=== PATIENT | female | born 1995 | race Caucasian/White ===

== ENCOUNTER 2024-07-19 20:53 | Observation (INO) ==
[2024-07-19 22:01] LABS: Basophils # (auto) 0.04 K/uL (0.00-0.20); Basophils % (auto) 0.6 %; Eosinophils # (auto) 0.02 K/uL (0.00-0.50); Eosinophils % (auto) 0.3 %; Hematocrit (blood only) 42.1 % (37.0-47.0); Hemoglobin 14.7 g/dl (12.0-16.0); Immature Granulocytes # (auto) 0.02 K/uL (0.01-0.20); Immature Granulocytes % (auto) 0.3 %; Lymphocytes # (auto) 0.88 K/uL (1.20-3.40); Lymphocytes % (auto) 12.3 %; Mean Corpuscular Hemoglobin 30.6 pg (25.0-34.0); Mean Corpuscular Hgb Conc 34.9 g/dL (32.0-36.0); Mean Corpuscular Volume 87.7 fL (80.0-100.0); Mean Platelet Volume 9.8 fL (9.4-12.4); Monocytes # (auto) 0.49 K/uL (0.11-0.59); Monocytes % (auto) 6.9 %; Neutrophils # (auto) 5.68 K/uL (1.40-6.50); Neutrophils % (auto) 79.6 %; Platelet Count 290 K/uL (130-400); RDW Coefficient of Variation 11.9 % (11.5-14.5); RDW Standard Deviation 38.3 fL (36.4-46.3); White Blood Count 7.13 K/ul (4.8-10.8)
[2024-07-19 22:14] LABS: Appearance Urine Cloudy (Clear); Specific Gravity Urine 1.016 (1.000-1.030)
[2024-07-19 22:16] LABS: Epithelial Cell Urine >20 /hpf (0-2)
[2024-07-19 22:17] LABS: RBC Urine >20 /hpf (0-2)
[2024-07-19 22:18] LABS: BUN Creatinine Ratio 9.6 (10-20); Bilirubin,Total 0.7 mg/dl (0.2-1.0); Globulin 2.5 gm/dl (2.5-4.0); Potassium 3.6 mmol/L (3.5-5.1); Total Protein 7.5 gm/dl (6.0-8.3)
[2024-07-19] MEDS: fentaNYL citrate PF 100 MCG/2 ML VIAL IV STA (22:18)
[2024-07-19 22:19] LABS: WBC Urine 0-5 /hpf (0-5)
[2024-07-19] MEDS: ONDANSETRON INJ 2 MG/ML 2 ML VIAL IV STA (22:19)
[2024-07-19 22:20] LABS: Bacteria Urine None Seen (None Seen)
--- NOTE | 2024-07-19 22:22 | Emergency Department Note ---
Impression & Plan Acute left flank pain, Calculus of distal left ureter, Left ureteral calculus, Hydroureteronephrosis, Sinus tachycardia ED Provider Note HISTORY OF PRESENT ILLNESS: Patient is a 29-year-old female to male transgender patient presenting with left flank pain. Was here a few days ago for similar symptoms and was diagnosed with a kidney stone. Patient was started on antibiotics and was taking tramadol and Zofran for pain and nausea symptoms, but symptoms significantly worsened this evening. Reports significant pain with urination and burning. Reports urinary frequency. States that despite tramadol dosing, pain is a 9 out of 10. Denies any fevers at home. Denies any chest pain or shortness of breath. Denies any history of abdominal surgeries. ROS: as above PHYSICAL EXAM: Constitutional: Patient appears in no acute distress. HENT: Head: Normocephalic and atraumatic. Eyes: EOMI, PERRL Mouth/Throat: Mucous membranes moist. Neck: Trachea midline. Neck supple. Cardiovascular: Tachycardic with regular rhythm. No murmurs, rubs or gallops. Intact distal pulses. Pulmonary/Chest: No respiratory distress. Breath sounds clear and equal bilaterally. No wheezes or rales. Abdominal: Abdomen soft, no tenderness, rebound or guarding. Musculoskeletal: No edema, tenderness or deformity noted. Skin: Warm and dry. No rash, erythema, pallor or cyanosis Psychiatric: Appropriate mood and affect for situation. Neurological: Alert and keenly responsive. CN II-XII grossly intact, moving all extremities equally and fully. MDM: - Vitals signs showed tachycardia - History obtained via patient. History as above. - Chronic conditions affecting care: Anxiety - Differential diagnoses include, but are not limited to: Diverticulitis; pyelonephritis; UTI; appendicitis; colitis; dehydration; ureteral stone - Order placed for continuous cardiac monitoring. At this time, monitor showed rate of 112 bpm with normal sinus rhythm, per my interpretation. - External medical records reviewed. Primary care visit note dated 06/25/2024 was reviewed. Patient was being treated with Azo and Bactrim for urinary symptoms. - Laboratory workup interpreted by myself showed normal WBC; stable electrolytes; normal lactate; normal lipase; negative hCG - UA negative - Patient given 500 cc NS, 4 mg IV zofran and 50 mcg IV fentanyl for symptomatic management. On reassessment, the patient still complaining of some discomfort. Heart rate still persistently tachycardic from 120-130. An additional 1 L normal saline was ordered, however, the patient declined because "I do not want to keep going to the bathroom." - CT abdomen/pelvis with IV contrast showed a 3.4 mm distal left ureteral stone at the UVJ with mild to moderate left hydroureteronephrosis. An additional proximal left ureteral stone measuring 3.4 mm is noted 3 cm beyond the left UPJ. - Discussed case with midlevel provider on for urology, Dorian Caban. Plans to come evaluate the patient. - Given patient's failed outpatient management for stone pain and persistent tachycardia, will admit to hospitalist service with urology consultation. - Discussion was had with mattress spring encaser about patient's case and need for admission - Hospitalist, Dr. Ramirez, consulted for admission - Patient admitted to [facility] hospitalist service for further evaluation and management. ASSESSMENT AND PLAN: Diagnosis: Acute left flank pain; left distal ureteral stone; sinus tachycardia; left ureteral calculi; hydroureteronephrosis Plan: Admit Past Med/Surg History Problem List (Updated 07/20/24 @ 00:10 by Deepti Welch MD) Sinus tachycardia (Acute) Hydroureteronephrosis (Acute) Left ureteral calculus (Acute) Calculus of distal left ureter (Acute) Acute left flank pain (Acute) UTI (urinary tract infection) (Acute) Kidney stones (Acute) Dissociative identity disorder (Chronic) Left breast mass Kidney stone Ambulatory dysfunction Vitamin D insufficiency NYDIA (generalized anxiety disorder) (Chronic) Arthralgia Gender identity disorder (Chronic) Depression (Chronic) Medical History Post-COVID syndrome PTSD (post-traumatic stress disorder) Anxiety and depression Surgical History History of breast surgery bilateral nipple reduction S/P wisdom tooth extraction Family History Mother Breast cancer Stroke Lupus Father Kidney stones Denies family history of Ovarian cancer Prostate cancer Myocardial infarction Colorectal cancer Social History Smoking Status: Never smoker Tobacco Type: Cigarettes packs per day: 0.5; Second Hand Exposure: No; Do You Dip or Chew Tobacco: No; Hx Alcohol Use: No Hx Substance Use: No Preferred Language: Maltese Communication Ability: Effective Visual Impairment: No Limitations Hearing Ability: Normal French Folder Required: No marital status: Current Living Situation: Spouse current occupational status: unemployed Feels Safe at Home: Yes Childhood Exposure to Second-Hand Smoke: No Diet: regular Dental Care, Regularly: Yes Physical Activity Frequency: 1-2 Times per Week Seatbelt Use: always Sunscreen Use: No Gender Identity: Transgender Male Assistive Devices: Cane and Glasses Allergies Allergies Allergy/AdvReac Type Severity Reaction Status Date / Time No Known Drug Allergies Allergy Verified 06/25/24 11:17 Home Meds Home Medications Medication Instructions Recorded Confirmed diphenhydramine HCl 25 mg capsule 12.5 mg PO DAILY PRN 11/13/20 06/25/24 (Benadryl) Medical Marijuana 1 mg inhalation BID PRN 09/04/22 06/25/24 meloxicam 15 mg tablet 7.5 mg PO BID PRN 09/04/22 03/10/24 citalopram 10 mg tablet (Celexa) 0.5 mg PO DAILY 03/12/23 06/25/24 lamotrigine 100 mg tablet 100 mg PO BID 06/25/24 06/25/24 Previous Rx's Medication Instructions Recorded bupropion HCl 150 mg 24 hr tablet, 150 mg PO QAM #30 tabs 03/20/21 extended release (Wellbutrin XL) Aluminum Crutches #1 ea 12/26/21 sulfamethoxazole 800 1 tab PO Q12H 3 days #6 tabs 06/28/24 mg-trimethoprim 160 mg tablet (Bactrim DS) medroxyprogesterone 150 mg/mL 150 mg IM ONCE 10 weeks #70 mL 07/05/24 intramuscular syringe (Depo-Provera) cefdinir 300 mg capsule 300 mg PO BID 7 days #14 caps 07/13/24 tamsulosin 0.4 mg capsule (Flomax) 0.4 mg PO DAILY #14 caps 07/13/24 tramadol 50 mg tablet 50 mg PO Q8H PRN pain #14 tabs 07/13/24 Results & Data (ED) Vital Signs Vital Signs - 24 hr 07/19/24 20:58 07/19/24 21:19 07/19/24 21:44 Temperature 36.5 C Temperature Source Temporal Artery Scan Pulse Rate 130 H 131 H 131 H Pulse Rate from SpO2 Sensor 124 H Pulse Rhythm Respiratory Rate 20 21 Blood Pressure 139/80 142/101 H Blood Pressure Mean 99 111 Pulse Oximetry 97 100 Oxygen Delivery Method Room Air Sepsis Recent Fever Within 48 Hours No Sepsis New/Unexplained Change in Mental Status No Sepsis Action Taken by Nursing No Action Required 07/19/24 21:55 07/19/24 22:00 07/19/24 22:27 Temperature Temperature Source Pulse Rate 112 H 115 H 125 H Pulse Rate from SpO2 Sensor 120 H 123 H Pulse Rhythm Regular Respiratory Rate 18 19 17 Blood Pressure 134/107 H 138/101 H Blood Pressure Mean 119 111 Pulse Oximetry 100 99 100 Oxygen Delivery Method Room Air Sepsis Recent Fever Within 48 Hours Sepsis New/Unexplained Change in Mental Status Sepsis Action Taken by Nursing Laboratory Data 07/19/24 21:40 07/19/24 21:40 Lab Results 07/19/24 07/19/24 Range/Units 21:40 21:50 WBC 7.13 (4.8-10.8) K/ul RBC 4.80 (4.20-5.40) M/uL Hgb 14.7 (12.0-16.0) g/dl Hct 42.1 (37.0-47.0) % MCV 87.7 (80.0-100.0) fL MCH 30.6 (25.0-34.0) pg MCHC 34.9 (32.0-36.0) g/dL RDW Std Deviation 38.3 (36.4-46.3) fL RDW Coeff of Ap 11.9 (11.5-14.5) % Plt Count 290 (130-400) K/uL MPV 9.8 (9.4-12.4) fL Immature Gran % (Auto) 0.3 % Neut % (Auto) 79.6 % Lymph % (Auto) 12.3 % Blaine % (Auto) 6.9 % Eos % (Auto) 0.3 % Baso % (Auto) 0.6 % Neut # (Auto) 5.68 (1.40-6.50) K/uL Lymph # (Auto) 0.88 L (1.20-3.40) K/uL Blaine # (Auto) 0.49 (0.11-0.59) K/uL Eos # (Auto) 0.02 (0.00-0.50) K/uL Baso # (Auto) 0.04 (0.00-0.20) K/uL Immature Gran # (Auto) 0.02 (0.01-0.20) K/uL Sodium 136 (136-145) mmol/L Potassium 3.6 (3.5-5.1) mmol/L Chloride 100 (98-107) mmol/L Carbon Dioxide 26 (21-32) mmol/L Anion Gap 10 (3-11) BUN 10 (6-23) mg/dl Creatinine 1.04 (0.6-1.2) mg/dl Est Cr Clr Drug Dosing 59.0 ml/min eGFR 75.55 BUN/Creatinine Ratio 9.6 L (10-20) Glucose 93 (70-99(Fasting)) mg/dl Lactate 1.3 (0.4-2.0) mmol/L Calcium 10.0 (8.6-10.3) mg/dl Total Bilirubin 0.7 (0.2-1.0) mg/dl AST 14 (13-39) U/L ALT 11 (7-52) U/L Alkaline Phosphatase 64 (34-104) U/L Total Protein 7.5 (6.0-8.3) gm/dl Albumin 5.0 (3.4-5.0) gm/dl Globulin 2.5 (2.5-4.0) gm/dl Albumin/Globulin Ratio 2.0 (0.9-2) Lipase 25 (11-82) U/L Urine Color See Comment Urine Appearance Cloudy A (Clear) Urine pH Not Reportable Ur Specific [place] 1.016 (1.000-1.030) Urine Protein Not Reportable Urine Glucose (UA) Not Reportable Urine Ketones Not Reportable Urine Blood Not Reportable Urine Nitrite Not Reportable Urine Bilirubin Not Reportable Urine Urobilinogen Not Reportable Ur Leukocyte Esterase Not Reportable Urine RBC >20 H (0-2) /hpf Urine WBC 0-5 (0-5) /hpf Ur Epithelial Cells >20 H (0-2) /hpf Urine Bacteria None Seen (None Seen) POC Ur Test NEG (NEG) Administered Medications Discontinued Medications Fentanyl Citrate (Fentanyl Citrate Pf 100 Mcg/2 Ml Vial) 50 mcg IV NOW STA Stop: 07/19/24 22:07 Last Admin: 07/19/24 22:18 Dose: 50 mcg Documented By: DENISE Sodium Chloride (Nss) 1,000 mls @ 999 mls/hr IV .Q1H1M ONE Stop: 07/19/24 23:06 Last Infusion: 07/19/24 23:51 Dose: Infused Documented By: Admin: 07/19/24 22:24 Dose: 999 mls/hr Documented By: DENISE Ioversol (Optiray 320 100ml) 93 ml IV ONCE ONE Stop: 07/19/24 23:01 Last Admin: 07/19/24 23:01 Dose: 93 ml Documented By: RENA Ondansetron HCl (Ondansetron Inj 2 Mg/Ml 2 Ml Vial) 4 mg IV NOW STA Stop: 07/19/24 22:07 Last Admin: 07/19/24 22:19 Dose: 4 mg Documented By: DENISE Imaging Data Radiologist's Impression: Abdomen/Pelvis CT 07/19/24 22:06 Exam(s): CT ABDOMEN + PELVIS With Contrast IV Amt: 93 ml opti 320 EXAM: CT Abdomen and Pelvis With Intravenous Contrast CLINICAL HISTORY: left flank pain. TECHNIQUE: Axial computed tomography images of the abdomen and pelvis with intravenous contrast. CTDI is 7.41 mGy and DLP is 336.98 mGy-cm. Automated exposure control was utilized for the study. A dose lowering technique was utilized adhering to the principles of ALARA. CONTRAST: Patient received 93 ml opti 320 of IV contrast COMPARISON: CT abdomen and pelvis without contrast dated 07/13/2024 FINDINGS: Lung bases: Unremarkable. No mass. No consolidation. ABDOMEN: Liver: Unremarkable. No mass. Gallbladder and bile ducts: Unremarkable. No calcified stones. No ductal dilation. Pancreas: Unremarkable. No mass. No ductal dilation. Spleen: Unremarkable. No splenomegaly. Adrenals: Unremarkable. No mass. Kidneys and ureters: 3.4 mm distal left ureteral stone noted at the UVJ with mild to moderate left hydroureteronephrosis. There is an additional proximal left ureteral stone noted measuring 3.4 mm approximately 3 cm beyond the left UPJ (series 300; image 47). No abnormal enhancement to suggest pyelonephritis bilaterally. Evaluation for subtle nonobstructive nephrolithiasis is limited by contrast enhancement pattern. No right-sided hydronephrosis. Stomach and bowel: No evidence for bowel obstruction. No definite asymmetric bowel mucosal abnormality. Mild to moderate stool burden. PELVIS: Appendix: A normal caliber appendix is noted along the medial aspect of the cecum. Bladder: Unremarkable. No mass. Reproductive: Unremarkable as visualized. ABDOMEN and PELVIS: Intraperitoneal space: Unremarkable. No free air. No significant fluid collection. Bones/joints: No acute fracture. No dislocation. Soft tissues: Unremarkable. Vasculature: Unremarkable. No abdominal aortic aneurysm. Lymph nodes: Unremarkable. No enlarged lymph nodes. IMPRESSION: 3.4 mm distal left ureteral stone noted at the UVJ with mild to moderate left hydroureteronephrosis. There is an additional proximal left ureteral stone noted measuring 3.4 mm approximately 3 cm beyond the left UPJ (series 300; image 47). Electronically signed by: Wade Foster MD 07/19/24 23:58 PM Discharge Plan Visit Data Chief Complaint: Abdominal Pain Stated Complaint: UTI,KIDNEY STONES,VOIDING ISSUES ED Provider: Deepti Welch Discharge Problem: Acute left flank pain, Calculus of distal left ureter, Left ureteral calculus, Hydroureteronephrosis, Sinus tachycardia Forms Stand Alone Forms: [employer] Prescriptions Prescriptions: No Action bupropion HCl [Wellbutrin XL] 150 mg tablet extended release 24 hr 150 mg PO QAM Qty: 30 2RF (DME) Aluminum Crutches Misc See Rx Instructions .Route Qty: 1 0RF Rx Instructions: 1 pair forearm brace crutches. Length of need:99 sulfamethoxazole-trimethoprim [Bactrim DS] 800-160 mg tablet 1 tab PO Q12H 3 Days Qty: 6 0RF medroxyprogesterone [Depo-Provera] 150 mg/mL syringe 150 mg IM ONCE 70 Days Qty: 70 4RF Rx Instructions: One injection Q 10w. diphenhydramine HCl [Benadryl] 25 mg capsule 12.5 mg PO DAILY PRN lamotrigine 100 mg tablet 100 mg PO BID meloxicam 15 mg tablet 7.5 mg PO BID PRN Medical Marijuana 1 mg inhalation BID PRN citalopram [Celexa] 10 mg tablet 0.5 mg PO DAILY cefdinir 300 mg capsule 300 mg PO BID 7 Days Qty: 14 0RF tamsulosin [Flomax] 0.4 mg capsule 0.4 mg PO DAILY Qty: 14 0RF tramadol 50 mg tablet 50 mg PO Q8H PRN (Reason: pain) Qty: 14 0RF Referrals Referrals: Brennon Warren III, CRNP [Primary Care Provider] -
[2024-07-19] MEDS: SODIUM CHLORIDE 0.9% 1,000 ML IV ONE (22:24)
[2024-07-19] MEDS: OPTIRAY 320 100ml IV ONE (23:01)
--- NOTE | 2024-07-19 23:59 | CT Scan Report ---
Exam(s): CT ABDOMEN + PELVIS With Contrast IV Amt: 93 ml opti 320 EXAM: CT Abdomen and Pelvis With Intravenous Contrast CLINICAL HISTORY: left flank pain. TECHNIQUE: Axial computed tomography images of the abdomen and pelvis with intravenous contrast. CTDI is 7.41 mGy and DLP is 336.98 mGy-cm. Automated exposure control was utilized for the study. A dose lowering technique was utilized adhering to the principles of ALARA. CONTRAST: Patient received 93 ml opti 320 of IV contrast COMPARISON: CT abdomen and pelvis without contrast dated 07/13/2024 FINDINGS: Lung bases: Unremarkable. No mass. No consolidation. ABDOMEN: Liver: Unremarkable. No mass. Gallbladder and bile ducts: Unremarkable. No calcified stones. No ductal dilation. Pancreas: Unremarkable. No mass. No ductal dilation. Spleen: Unremarkable. No splenomegaly. Adrenals: Unremarkable. No mass. Kidneys and ureters: 3.4 mm distal left ureteral stone noted at the UVJ with mild to moderate left hydroureteronephrosis. There is an additional proximal left ureteral stone noted measuring 3.4 mm approximately 3 cm beyond the left UPJ (series 300; image 47). No abnormal enhancement to suggest pyelonephritis bilaterally. Evaluation for subtle nonobstructive nephrolithiasis is limited by contrast enhancement pattern. No right-sided hydronephrosis. Stomach and bowel: No evidence for bowel obstruction. No definite asymmetric bowel mucosal abnormality. Mild to moderate stool burden. PELVIS: Appendix: A normal caliber appendix is noted along the medial aspect of the cecum. Bladder: Unremarkable. No mass. Reproductive: Unremarkable as visualized. ABDOMEN and PELVIS: Intraperitoneal space: Unremarkable. No free air. No significant fluid collection. Bones/joints: No acute fracture. No dislocation. Soft tissues: Unremarkable. Vasculature: Unremarkable. No abdominal aortic aneurysm. Lymph nodes: Unremarkable. No enlarged lymph nodes. IMPRESSION: 3.4 mm distal left ureteral stone noted at the UVJ with mild to moderate left hydroureteronephrosis. There is an additional proximal left ureteral stone noted measuring 3.4 mm approximately 3 cm beyond the left UPJ (series 300; image 47). Electronically signed by: Wade Foster MD 07/19/24 23:58 PM
[2024-07-20 00:12] LABS: Thyroid Stimulating Hormone 1.574 uIu/ml (0.300-4.500)
[2024-07-20] MEDS: MoRPHine SULFATE 4 MG/ML 1 ML CARP\\VIAL IV STA (00:18)
[2024-07-20] MEDS: ACETAMINOPHEN 1,000 MG/100 ML VIAL IV STA (00:26)
[2024-07-20] MEDS: SODIUM CHLORIDE 0.9% 1,000 ML IV ONE (00:27)
--- NOTE | 2024-07-20 00:29 | Urology Consultation ---
Date of Consultation July 20, 2024 Assessment & Plan (1) Left ureteral calculus: I discussed with the treating emergency room physician that the patient is being admitted on the hospitalist service. From a urologic perspective we recommend the following: During the patient's previous visit the urine culture results were noted and the reflection was recommended. Although the urinalysis at this time is not indicative of infection I will order a urine culture Analgesics to be provided Antiemetics to be provided Would recommend continuing Flomax for expulsive therapy Would recommend continuing antibiotics and will leave this to the discretion of the primary service which antibiotic to utilize Would recommend the patient be made n.p.o. at this time At the present time patient is nontoxic-appearing. Although they are tachycardic they do not exhibit hypotension, fever, or leukocytosis. In addition, lactic acid level is normal. I therefore feel conservative management is warranted at this time. The patient will be reevaluated the morning 07/20/2024 and determination will be made if patient requires cystoscopic intervention. History of Present Illness Reason for Consultation: Nephrolithiasis History of Present Illness This is a 29-year-old female who presented the emergency department secondary to issues with kidney stones. Patient was previously seen on 07/13/2024 in the emergency department. During this visit patient had a CT scan of the abdomen pelvis which identified a 5 mm kidney stone in the distal left ureter. There is no hydronephrosis noted on this study. Patient was also noted to have a 5 mm stone in the left renal pelvis. Labs included CBC were hemoglobin and hematocrit, white blood cell count platelet count were all normal. Chemistry profile showed sodium and potassium as well as the BUN and creatinine were normal. Urinalysis showed no nitrites or bacteria but the patient was noted to have pyuria with 11-20 white blood cells per high-power field as well as 1+ leukocyte Estrace. Patient was felt to be stable for discharge home and was placed on antibiotics form of cefdinir as well as Flomax and analgesics. It is nowhere the mention that the urine culture did come back from this visit which showed 3 organisms all in high counts with recollection recommended. The patient Power presented to the emergency department today secondary to ongoing issues with pain. The patient notes that they are been having left flank pain with some associated nausea without emesis. Patient has not had any fevers, shakes, but does have occasional chills. Patient also notes that they had the urge to urinate and are only able to urinate a small amount. Patient does report they have been compliant with the antibiotics. Since arrival to the emergency department today they have had labs and imaging which I independently reviewed. A CT scan abdomen pelvis showed the patient had 3.4 mm distal left ureteral stone at the ureterovesical junction. There is mild to moderate hydronephrosis noted on the study. Patient was also noted to have a left ureteral stone approximately 3 cm beyond the ureteropelvic junction measu ring 3.4 mm. Labs included a CBC where hemoglobin, hematocrit, white blood cell count, platelet count were normal. Chemistry profile showed sodium and potassium as well as the BUN and creatinine were normal. Lactic acid was not elevated. A test was noted to be negative. Urinalysis was not indicative of infection. At the time my interview the patient was resting comfortably in bed and there were no distress. Allergies Allergy/AdvReac Type Severity Reaction Status Date / Time No Known Drug Allergies Allergy Verified 06/25/24 11:17 Home Medications Medication Instructions Recorded Confirmed Type diphenhydramine HCl 25 mg capsule 12.5 mg PO DAILY PRN 11/13/20 06/25/24 History (Benadryl) bupropion HCl 150 mg 24 hr tablet, 150 mg PO QAM #30 tabs 03/20/21 06/25/24 Rx extended release (Wellbutrin XL) Aluminum Crutches #1 ea 12/26/21 03/10/24 Rx Medical Marijuana 1 mg inhalation BID PRN 09/04/22 06/25/24 History meloxicam 15 mg tablet 7.5 mg PO BID PRN 09/04/22 03/10/24 History citalopram 10 mg tablet (Celexa) 0.5 mg PO DAILY 03/12/23 06/25/24 History lamotrigine 100 mg tablet 100 mg PO BID 06/25/24 06/25/24 History sulfamethoxazole 800 1 tab PO Q12H 3 days #6 tabs 06/28/24 Rx mg-trimethoprim 160 mg tablet (Bactrim DS) medroxyprogesterone 150 mg/mL 150 mg IM ONCE 10 weeks #70 mL 07/05/24 Rx intramuscular syringe (Depo-Provera) cefdinir 300 mg capsule 300 mg PO BID 7 days #14 caps 07/13/24 Rx tamsulosin 0.4 mg capsule (Flomax) 0.4 mg PO DAILY #14 caps 07/13/24 Rx tramadol 50 mg tablet 50 mg PO Q8H PRN pain #14 tabs 07/13/24 Rx Patient History Medical History Post-COVID syndrome PTSD (post-traumatic stress disorder) Anxiety and depression Surgical History History of breast surgery bilateral nipple reduction S/P wisdom tooth extraction Family History Mother Breast cancer Stroke Lupus Father Kidney stones Denies family history of Ovarian cancer Prostate cancer Myocardial infarction Colorectal cancer Social History Smoking Status: Never smoker Tobacco Type: Cigarettes packs per day: 0.5; Second Hand Exposure: No; Do You Dip or Chew Tobacco: No; Hx Alcohol Use: No Hx Substance Use: No Preferred Language: Faroese Communication Ability: Effective Visual Impairment: No Limitations Hearing Ability: Normal Eyelet Punch Operator Required: No marital status: Current Living Situation: Spouse current occupational status: unemployed Feels Safe at Home: Yes Childhood Exposure to Second-Hand Smoke: No Diet: regular Dental Care, Regularly: Yes Physical Activity Frequency: 1-2 Times per Week Seatbelt Use: always Sunscreen Use: No Gender Identity: Transgender Male Assistive Devices: Cane and Glasses Review of Systems Review of Systems: All systems reviewed & are unremarkable except as noted in HPI & below Physical Exam Constitutional: + thin; no acute distress Eyes: Wears glasses ENMT: Ears: no hearing impairment Mouth: no oropharynx abnormality Neck: trachea midline Respiratory: normal respiratory effort; no respiratory distress and no labored breathing Cardiovascular: Rate/Rhythm: regular rate and regular rhythm Gastrointestinal (Abdomen): Soft and nondistended Skin: no rashes Neurologic: moves all extremities Psychiatric: A+Ox3, euthymic affect Genitourinary: Minor CVA tenderness noted with percussion on the left. Results & Data Vital Signs (Past 12 Hours) Vital Signs Temp Pulse Resp BP Pulse Ox O2 Del Method 07/19/24 22:27 125 H 17 138/101 H 100 07/19/24 22:00 115 H 19 134/107 H 99 07/19/24 21:55 112 H 18 100 Room Air 07/19/24 21:44 131 H 21 142/101 H 100 07/19/24 21:19 131 H 07/19/24 20:58 36.5 C 130 H 20 139/80 97 Room Air PG Care Time/CCT Total # of Minutes Spent Total Time Spent with Patient: Total time spent is greater than 50% in coordination of care (as documented) at patient's floor/unit and/or counseling patient: Coding Level of Care Code 51196 IN/OBS CONSULT LVL 5,80M Diagnoses Left ureteral calculus N20.1
[2024-07-20] MEDS ORDERED: KETOROLAC TROMETHAMINE 15 MG/ML VIAL IV PRN ×2 (01:11→10:15)
[2024-07-20 01:28] LABS: Magnesium 1.9 mg/dl (1.7-2.4)
[2024-07-20] MEDS: ONDANSETRON INJ 2 MG/ML 2 ML VIAL IV PRN (02:09)
[2024-07-20] MEDS: PANTOprazole 40 MG/10 ML SYR IV ONE (02:09)
[2024-07-20] MEDS: ONDANSETRON INJ 2 MG/ML 2 ML VIAL ONE (02:11)
--- NOTE | 2024-07-20 04:15 | History & Physical Report ---
Date of Service July 20, 2024 Assessment & Plan (1) Calculus of distal left ureter: (2) Left ureteral calculus: (3) Hydroureteronephrosis: (4) Acute left flank pain: (5) Sinus tachycardia: (6) UTI (urinary tract infection): (7) NYDIA (generalized anxiety disorder): (8) Gender identity disorder: (9) Depression: Plan 3.4 mm distal left UVJ and 3.4 mm proximal ureteral stones/mild to moderate left hydroureteronephrosis/UTI- Follow urine culture and sensitivity Stop oral cefdinir Place on ceftriaxone 1 g IV daily Status post normal saline 1 L boluses x 2 NSS at 80 mL/h x 1 L Acetaminophen 1 g IV every 8 hours as needed for mild pain or fever Toradol 10 mg IV every 6 hours as needed for moderate pain Pantoprazole 40 mg IV daily Resume tamsulosin when taking oral Patient reports that he felt nauseous and lightheaded after receiving fentanyl. Transgender female to male/gender identity disorder/dissociative identity disorder/NYDIA/depression- Resume bupropion, citalopram, lamotrigine when back to having oral intake Admission and Anticipated Discharge Date Admission Date: July 20, 2024 History of Present Illness Chief Complaint: The patient initially presented to the emergency department on 07/13/2024 with complaint of left flank pain, at that time was diagnosed with left-sided ureteral stones, and was discharged after consultation with urology on cefdinir, tramadol and Zofran. The patient had been doing somewhat well since that time, however, they have worsening flank pain and nausea, and presents to the ED tonight for reassessment. New symptoms this evening is burning with urination Primary Care Provider: Brennon Warren III, SHIRA The patient is a 29-year-old with past medical history including kidney stones, vitamin D deficiency, NYDIA, gender identity disorder, depression, dissociative identity disorder, and recently diagnosed left ureteral stones. Due to worsening symptoms, the patient returned to the ED this evening. CT scan of abdomen and pelvis this evening showed a 3.4 mm distal left UVJ stone, with mild to moderate left hydroureteronephrosis. There is also a 3.4 mm more proximal stone. The patient was then referred for evaluation for admission. Allergies Allergy/AdvReac Type Severity Reaction Status Date / Time No Known Drug Allergies Allergy Verified 06/25/24 11:17 Home Medications Medication Instructions Recorded Confirmed Type diphenhydramine HCl 25 mg capsule 12.5 mg PO DAILY PRN 11/13/20 06/25/24 History (Benadryl) bupropion HCl 150 mg 24 hr tablet, 150 mg PO QAM #30 tabs 03/20/21 06/25/24 Rx extended release (Wellbutrin XL) Aluminum Crutches #1 ea 12/26/21 03/10/24 Rx Medical Marijuana 1 mg inhalation BID PRN 09/04/22 06/25/24 History meloxicam 15 mg tablet 7.5 mg PO BID PRN 09/04/22 03/10/24 History citalopram 10 mg tablet (Celexa) 0.5 mg PO DAILY 03/12/23 06/25/24 History lamotrigine 100 mg tablet 100 mg PO BID 06/25/24 06/25/24 History sulfamethoxazole 800 1 tab PO Q12H 3 days #6 tabs 06/28/24 Rx mg-trimethoprim 160 mg tablet (Bactrim DS) medroxyprogesterone 150 mg/mL 150 mg IM ONCE 10 weeks #70 mL 07/05/24 Rx intramuscular syringe (Depo-Provera) cefdinir 300 mg capsule 300 mg PO BID 7 days #14 caps 07/13/24 Rx tamsulosin 0.4 mg capsule (Flomax) 0.4 mg PO DAILY #14 caps 07/13/24 Rx tramadol 50 mg tablet 50 mg PO Q8H PRN pain #14 tabs 07/13/24 Rx Past Med/Surg History Problem List Sinus tachycardia (Acute) Hydroureteronephrosis (Acute) Left ureteral calculus (Acute) Calculus of distal left ureter (Acute) Acute left flank pain (Acute) UTI (urinary tract infection) (Acute) Kidney stones (Acute) Dissociative identity disorder (Chronic) Left breast mass Kidney stone Ambulatory dysfunction Vitamin D insufficiency NYDIA (generalized anxiety disorder) (Chronic) Arthralgia Gender identity disorder (Chronic) Depression (Chronic) Medical History Post-COVID syndrome PTSD (post-traumatic stress disorder) Anxiety and depression Surgical History History of breast surgery bilateral nipple reduction S/P wisdom tooth extraction Family History Mother Breast cancer Stroke Lupus Father Kidney stones Denies family history of Ovarian cancer Prostate cancer Myocardial infarction Colorectal cancer Social History Smoking Status: Never smoker Tobacco Type: Cigarettes packs per day: 0.5; Second Hand Exposure: No; Do You Dip or Chew Tobacco: No; Hx Alcohol Use: No Hx Substance Use: Yes Last Used Substance Other:: prior rx, hasnt used in "months" Preferred Language: Pashto Communication Ability: Effective Visual Impairment: No Limitations Hearing Ability: Normal Rental Clerk Required: No Beliefs That Will Affect Care: None marital status: Current Living Situation: Spouse Current Living Situation Comment: apartment with spouse current occupational status: unemployed Feels Safe at Home: Yes Safety Concerns: Feels Safe At This Time Childhood Exposure to Second-Hand Smoke: No Diet: regular Dental Care, Regularly: Yes Physical Activity Frequency: 1-2 Times per Week Seatbelt Use: always Sunscreen Use: No Gender Identity: Transgender Male Assistive Devices: Cane and Glasses Review of Systems Review of Systems: The patient denies chest pain, palpitations, shortness of breath, dyspnea on exertion, cough, lower extremity swelling, sore throat, fevers, chills, sweats, diarrhea , constipation, blood in urine or stool, lightheadedness, dizziness, headache, memory loss, loss of consciousness, rash, abnormal bruising or bleeding, imbalance, focal or generalized weakness, numbness or tingling in arms or legs, generalized arthralgias or myalgias, back or neck pain, or night sweats. The review of systems is otherwise negative other than for that already noted above, and at least 10 systems have been reviewed. Physical Exam Physical Exam: The patient is awake, alert and oriented 3, well developed and well nourished, normocephalic and atraumatic, lying in bed and in no acute distress. HEENT--PERRL, EOMI, mucous membranes and oropharynx dry. Neck--supple. No JVD. No bruits. Thyroid normal, trachea midline, no adenopathy. Heart--normal S1 and S2. No murmurs, rubs or gallops. Lungs--clear bilaterally, no respiratory distress, no accessory muscle use. Abdomen--normal bowel sounds and soft. Nontender. Nondistended, no hernias or masses, no organomegaly. Extremities--no cyanosis or clubbing. No edema. There are good distal pulses b/l. Dermatologic--normal skin turgor, normal color, no abnormal lymph nodes, no rash. Neurologic--cranial nerves II through XII grossly intact. Rheumatologic--normal range of motion. Psychiatric--normal affect. Results & Data Results & Data Vital Signs (Past 12 Hours) Vital Signs Temp Pulse Pulse Resp BP BP Pulse Ox 07/20/24 02:11 104 H 12 127/81 99 07/20/24 01:11 116 H 07/20/24 01:03 118 H 12 07/20/24 00:57 119 H 18 07/20/24 00:36 127 H 15 07/19/24 22:45 118 H 16 100 07/19/24 22:33 116 H 14 97 07/19/24 22:27 125 H 17 138/101 H 100 07/19/24 22:00 115 H 19 134/107 H 99 07/19/24 21:55 112 H 18 100 07/19/24 21:44 131 H 21 142/101 H 100 07/19/24 21:19 131 H 07/19/24 20:58 36.5 C 130 H 20 139/80 97 O2 Del Method 07/20/24 02:11 Room Air 07/20/24 01:11 07/20/24 01:03 07/20/24 00:57 07/20/24 00:36 07/19/24 22:45 07/19/24 22:33 07/19/24 22:27 07/19/24 22:00 07/19/24 21:55 Room Air 07/19/24 21:44 07/19/24 21:19 07/19/24 20:58 Room Air Laboratory Results Laboratory Results WBC 7.13 K/ul (4.8-10.8) 07/19/24 21:40 RBC 4.80 M/uL (4.20-5.40) 07/19/24 21:40 Hgb 14.7 g/dl (12.0-16.0) 07/19/24 21:40 Hct 42.1 % (37.0-47.0) 07/19/24 21:40 MCV 87.7 fL (80.0-100.0) 07/19/24 21:40 MCH 30.6 pg (25.0-34.0) 07/19/24 21:40 MCHC 34.9 g/dL (32.0-36.0) 07/19/24 21:40 RDW Std Deviation 38.3 fL (36.4-46.3) 07/19/24 21:40 RDW Coeff of Ap 11.9 % (11.5-14.5) 07/19/24:40 Plt Count 290 K/uL (130-400) 07/19/24 21:40 MPV 9.8 fL (9.4-12.4) 07/19/24 21:40 Immature Gran % (Auto) 0.3 % 07/19/24:40 Neut % (Auto) 79.6 % 07/19/24 21:40 Lymph % (Auto) 12.3 % 07/19/24 21:40 Borden % (Auto) 6.9 % 07/19/24 21:40 Eos % (Auto) 0.3 % 07/19/24 21:40 Baso % (Auto) 0.6 % 07/19/24 21:40 Neut # (Auto) 5.68 K/uL (1.40-6.50) 07/19/24:40 Lymph # (Auto) 0.88 K/uL (1.20-3.40) L 07/19/24 21:40 Borden # (Auto) 0.49 K/uL (0.11-0.59) 07/19/24 21:40 Eos # (Auto) 0.02 K/uL (0.00-0.50) 07/19/24:40 Baso # (Auto) 0.04 K/uL (0.00-0.20) 07/19/24 21:40 Immature Gran # (Auto) 0.02 K/uL (0.01-0.20) 07/19/24 21:40 Sodium 136 mmol/L (136-145) 07/19/24 21:40 Potassium 3.6 mmol/L (3.5-5.1) 07/19/24 21:40 Chloride 100 mmol/L (98-107) 07/19/24 21:40 Carbon Dioxide 26 mmol/L (21-32) 07/19/24 21:40 Anion Gap 10 (3-11) 07/19/24 21:40 BUN 10 mg/dl (6-23) 07/19/24 21:40 Creatinine 1.04 mg/dl (0.6-1.2) 07/19/24 21:40 Est Cr Clr Drug Dosing 59.0 ml/min 07/19/24 21:40 eGFR 75.55 07/19/24 21:40 BUN/Creatinine Ratio 9.6 (10-20) L 07/19/24 21:40 Glucose 93 mg/dl (70-99(Fasting)) 07/19/24 21:40 Lactate 1.3 mmol/L (0.4-2.0) 07/19/24 21:40 Calcium 10.0 mg/dl (8.6-10.3) 07/19/24 21:40 Magnesium 1.9 mg/dl (1.7-2.4) 07/19/24 21:40 Total Bilirubin 0.7 mg/dl (0.2-1.0) 07/19/24 21:40 AST 14 U/L (13-39) 07/19/24 21:40 ALT 11 U/L (7-52) 07/19/24 21:40 Alkaline Phosphatase 64 U/L (34-104) 07/19/24 21:40 Total Protein 7.5 gm/dl (6.0-8.3) 07/19/24 21:40 Albumin 5.0 gm/dl (3.4-5.0) 07/19/24 21:40 Globulin 2.5 gm/dl (2.5-4.0) 07/19/24 21:40 Albumin/Globulin Ratio 2.0 (0.9-2) 07/19/24 21:40 Lipase 25 U/L (11-82) 07/19/24 21:40 TSH 1.574 uIu/ml (0.300-4.500) 07/19/24 21:40 Urine Color See Comment 07/19/24 21:40 Urine Appearance Cloudy (Clear) A 07/19/24 21:40 Urine pH Not Reportable 07/19/24 21:40 Ur Specific Nada 1.016 (1.000-1.030) 07/19/24 21:40 Urine Protein Not Reportable 07/19/24 21:40 Urine Glucose (UA) Not Reportable 07/19/24 21:40 Urine Ketones Not Reportable 07/19/24 21:40 Urine Blood Not Reportable 07/19/24 21:40 Urine Nitrite Not Reportable 07/19/24 21:40 Urine Bilirubin Not Reportable 07/19/24 21:40 Urine Urobilinogen Not Reportable 07/19/24 21:40 Ur Leukocyte Esterase Not Reportable 07/19/24 21:40 Urine RBC >20 /hpf (0-2) H 07/19/24 21:40 Urine WBC 0-5 /hpf (0-5) 07/19/24 21:40 Ur Epithelial Cells >20 /hpf (0-2) H 07/19/24 21:40 Urine Bacteria None Seen (None Seen) 07/19/24 21:40 POC Ur Test NEG (NEG) 07/19/24 21:50 Impressions Abdomen/Pelvis CT 07/19/24 22:06 Exam(s): CT ABDOMEN + PELVIS With Contrast IV Amt: 93 ml opti 320 EXAM: CT Abdomen and Pelvis With Intravenous Contrast CLINICAL HISTORY: left flank pain. TECHNIQUE: Axial computed tomography images of the abdomen and pelvis with intravenous contrast. CTDI is 7.41 mGy and DLP is 336.98 mGy-cm. Automated exposure control was utilized for the study. A dose lowering technique was utilized adhering to the principles of ALARA. CONTRAST: Patient received 93 ml opti 320 of IV contrast COMPARISON: CT abdomen and pelvis without contrast dated 07/13/2024 FINDINGS: Lung bases: Unremarkable. No mass. No consolidation. ABDOMEN: Liver: Unremarkable. No mass. Gallbladder and bile ducts: Unremarkable. No calcified stones. No ductal dilation. Pancreas: Unremarkable. No mass. No ductal dilation. Spleen: Unremarkable. No splenomegaly. Adrenals: Unremarkable. No mass. Kidneys and ureters: 3.4 mm distal left ureteral stone noted at the UVJ with mild to moderate left hydroureteronephrosis. There is an additional proximal left ureteral stone noted measuring 3.4 mm approximately 3 cm beyond the left UPJ (series 300; image 47). No abnormal enhancement to suggest pyelonephritis bilaterally. Evaluation for subtle nonobstructive nephrolithiasis is limited by contrast enhancement pattern. No right-sided hydronephrosis. Stomach and bowel: No evidence for bowel obstruction. No definite asymmetric bowel mucosal abnormality. Mild to moderate stool burden. PELVIS: Appendix: A normal caliber appendix is noted along the medial aspect of the cecum. Bladder: Unremarkable. No mass. Reproductive: Unremarkable as visualized. ABDOMEN and PELVIS: Intraperitoneal space: Unremarkable. No free air. No significant fluid collection. Bones/joints: No acute fracture. No dislocation. Soft tissues: Unremarkable. Vasculature: Unremarkable. No abdominal aortic aneurysm. Lymph nodes: Unremarkable. No enlarged lymph nodes. IMPRESSION: 3.4 mm distal left ureteral stone noted at the UVJ with mild to moderate left hydroureteronephrosis. There is an additional proximal left ureteral stone noted measuring 3.4 mm approximately 3 cm beyond the left UPJ (series 300; image 47). Electronically signed by: Wade Foster MD 07/19/24 23:58 PM Code Status & VTE Plan Code Status Full code VTE Prophylaxis Plan VTE Prophylaxis will be ordered: Yes PG Care Time/CCT Total # of Minutes Spent Total Time Spent with Patient: Total time spent is greater than 50% in coordination of care (as documented) at patient's floor/unit and/or counseling patient: Coding Level of Care Code 61140 INT INP/OBS CARE 2/55MIN Diagnoses Calculus of distal left ureter N20.1 Left ureteral calculus N20.1 Hydroureteronephrosis N13.30 Acute left flank pain R10.9 Sinus tachycardia R00.0 UTI (urinary tract infection) N30.01 Hematuria presence: with hematuria Urinary tract infection type: acute cystitis NYDIA (generalized anxiety disorder) F41.1 Gender identity disorder F64.9 Moderate episode of recurrent major depressive disorder F33.1 Depression Type: major depressive disorder Major depression recurrence: recurrent Active/Remission status: currently active Major depression episode severity: moderate (6) UTI (urinary tract infection) Hematuria presence: with hematuria Urinary tract infection type: acute cystitis Qualified Code(s): N30.01 - Acute cystitis with hematuria (9) Depression Depression Type: major depressive disorder Major depression recurrence: recurrent Active/Remission status: currently active Major depression episode severity: moderate Qualified Code(s): F33.1 - Major depressive disorder, recurrent, moderate
[2024-07-20] MEDS: SODIUM CHLORIDE 0.9% 1,000 ML IV SCH (04:54)
[2024-07-20] MEDS: cefTRIAXone SODIUM 2,000 MG/50 ML BAG IV SCH (04:54)
[2024-07-20 05:09] LABS: Basophils # (auto) 0.03 K/uL (0.00-0.20); Basophils % (auto) 0.5 %; Eosinophils # (auto) 0.04 K/uL (0.00-0.50); Eosinophils % (auto) 0.7 %; Hematocrit (blood only) 36.9 % (37.0-47.0); Hemoglobin 12.8 g/dl (12.0-16.0); Immature Granulocytes # (auto) 0.01 K/uL (0.01-0.20); Immature Granulocytes % (auto) 0.2 %; Lymphocytes # (auto) 1.13 K/uL (1.20-3.40); Lymphocytes % (auto) 20.4 %; Mean Corpuscular Hemoglobin 30.4 pg (25.0-34.0); Mean Corpuscular Hgb Conc 34.7 g/dL (32.0-36.0); Mean Corpuscular Volume 87.6 fL (80.0-100.0); Mean Platelet Volume 10.1 fL (9.4-12.4); Monocytes # (auto) 0.52 K/uL (0.11-0.59); Monocytes % (auto) 9.4 %; Neutrophils % (auto) 68.8 %; Platelet Count 244 K/uL (130-400); RDW Coefficient of Variation 11.9 % (11.5-14.5); RDW Standard Deviation 37.9 fL (36.4-46.3); Red Blood Count 4.21 M/uL (4.20-5.40); White Blood Count 5.53 K/ul (4.8-10.8)
[2024-07-20 05:19] LABS: BUN Creatinine Ratio 8.9 (10-20); Calcium 8.9 mg/dl (8.6-10.3); Creatinine Clr Calc Pharmacy 77.7 ml/min; Phosphorus 3.7 mg/dl (2.5-4.9)
[2024-07-20] MEDS: cefTRIAXone SODIUM 2000MG/50ML D5W IV ONE (05:37)
[2024-07-20] MEDS ORDERED: ACETAMINOPHEN 1,000 MG/100 ML VIAL IV PRN (07:00)
--- NOTE | 2024-07-20 08:58 | Urology Progress Note ---
Date of Service July 20, 2024 Assessment & Plan (1) Acute left flank pain: (2) Left ureteral calculus: (3) Hydroureteronephrosis: Plan: Follow-up of 2 left ureteral calculi with hydronephrosis Afebrile, mild tachycardia, hemodynamically stable Labs reviewedcreatinine 0.79, WBC 5.53, hemoglobin 12.8 UA was not suggestive of infection; microscopy showed>20 RBC, >20 epithelial cells, negative for bacteria Prior urine culture 07/13/2024 did not show any specific bacteria CT imaging reviewed and discussed Reviewed options for stone management including trial of passage with medical expulsive therapy versus surgical intervention with left ureteral stent placement today Discussed outpatient surgical options/management if symptoms are controlled Ureteral stents were discussed in detail After discussion, he prefers to avoid stent placement today No acute intervention planned today, patient can have diet today Can make NPO at PA to reassess for intervention if he remains inpatient Recommend continue with hydration, Flomax and symptom/pain management Strain all urine will follow Admission and Anticipated Discharge Date Admission Date: July 20, 2024 Subjective Patient seen and examined in the emergency department. He is awake and resting in litter. Reports some left flank discomfort. Voiding spontaneously, notes some urinary discomfort. Denies nausea, vomiting, fever or chills at present. Denies known stone passage, recently received urine strainer in ED. Review of Systems Constitutional: as per Subjective / HPI Gastrointestinal: as per Subjective / HPI Genitourinary: as per Subjective / HPI Physical Exam Constitutional: well developed and well nourished; no acute distress Respiratory: normal respiratory effort; no respiratory distress and no labored breathing Gastrointestinal (Abdomen): Inspection/Auscultation: abdomen normal to inspection Musculoskeletal: Head/Neck/Chest: normocephalic Neurologic: moves all extremities and awake Psychiatric: Orientation: alert and oriented x 3 Results & Data Vital Signs (Past 12 Hours) Vital Signs Temp Pulse Pulse Resp BP BP Pulse Ox 07/20/24 04:54 105 H 20 134/88 97 07/20/24 02:11 104 H 12 127/81 99 07/20/24 01:11 116 H 07/20/24 01:03 118 H 12 07/20/24 00:57 119 H 18 07/20/24 00:36 127 H 15 07/19/24 22:45 118 H 16 100 07/19/24 22:33 116 H 14 97 07/19/24 22:27 125 H 17 138/101 H 100 07/19/24 22:00 115 H 19 134/107 H 99 07/19/24 21:55 112 H 18 100 07/19/24 21:44 131 H 21 142/101 H 100 07/19/24 21:19 131 H 07/19/24 20:58 36.5 C 130 H 20 139/80 97 O2 Del Method 07/20/24 04:54 Room Air 07/20/24 02:11 Room Air 07/20/24 01:11 07/20/24 01:03 07/20/24 00:57 07/20/24 00:36 07/19/24 22:45 07/19/24 22:33 07/19/24 22:27 07/19/24 22:00 07/19/24 21:55 Room Air 07/19/24 21:44 07/19/24 21:19 07/19/24 20:58 Room Air PG Care Time/CCT Total # of Minutes Spent Total Time Spent with Patient: Total time spent is greater than 50% in coordination of care (as documented) at patient's floor/unit and/or counseling patient: Coding Level of Care Code 36186 SUB INP/OBS CARE 25MIN Diagnoses Acute left flank pain R10.9 Left ureteral calculus N20.1 Hydroureteronephrosis N13.30
[2024-07-20] MEDS: buPROPion XL 150 MG TABCR PO SCH (11:37)
[2024-07-20] MEDS: lamoTRIgine 100 MG TAB PO SCH (11:38)
[2024-07-20] MEDS: TAMSULOSIN HCL 0.4 MG CAP PO SCH (11:38)
[2024-07-20] MEDS: CITALOPRAM 20 MG TAB PO SCH (11:38)
[2024-07-20] MEDS ORDERED: ACETAMINOPHEN 500 MG TAB PO PRN (13:18)
[2024-07-20 16:06] VITALS: BP 136/82; PULSE 117; RESP 16; TEMP 98.8; O2SAT 96
--- NOTE | 2024-07-20 18:49 | Discharge Summary ---
Discharge Summary Date of Service July 20, 2024 Principal Dx & Hospital Course #1 = Principal Diagnosis (1) Left ureteral calculus: Presented to the ED for reassessment given worsening flank pain and nausea, as well as dysuria -Initially presented to ED on 07/13/2024 with complaint of left flank pain. Was diagnosed at that time with left-sided ureteral stones and was discharged after consultation with urology on cefdinir, tramadol, and Zofran -CT A/P on admission revealed 3.4 mm distal left UVJ and 3.4 mm proximal ureteral stones with mild to moderate left hydroureteronephrosis -UA not infected appearing -Status post normal saline 1 L boluses x 2, NSS at 80 mL/h x 1 L -Urology consulted > Patient elected outpatient stone management -Discharged on Flomax daily, Tylenol/ibuprofen first-line for pain, oxycodone 5 mg every 6 hours as needed for breakthrough pain, Zofran as needed for nausea. Given urine strainer and specimen cup on discharge -Follow-up with urology outpatient (2) Hydroureteronephrosis: (3) Acute left flank pain: (4) Sinus tachycardia: Suspect secondary to anxiety Asymptomatic from a cardiology perspective (5) NYDIA (generalized anxiety disorder): Continue bupropion, citalopram, lamotrigine Notes For Next Care Provider Presented with two 3.4 mm left-sided ureteral stones with mild/moderate hydronephrosis Patient elected for outpatient stone management Follow-up with urology outpatient Medication Changes From Visit Flomax daily Oxycodone 5 mg every 6 hours as needed for breakthrough pain Zofran as needed for nausea Admission HPI Per Admitting Provider The patient is a 29-year-old with past medical history including kidney stones, vitamin D deficiency, NYDIA, gender identity disorder, depression, dissociative identity disorder, and recently diagnosed left ureteral stones. Due to worsening symptoms, the patient returned to the ED this evening. CT scan of abdomen and pelvis this evening showed a 3.4 mm distal left UVJ stone, with mild to moderate left hydroureteronephrosis. There is also a 3.4 mm more proximal stone. The patient was then referred for evaluation for admission. Admission Exam Per Admitting Provider The patient is awake, alert and oriented 3, well developed and well nourished, normocephalic and atraumatic, lying in bed and in no acute distress. HEENT--PERRL, EOMI, mucous membranes and oropharynx dry. Neck--supple. No JVD. No bruits. Thyroid normal, trachea midline, no adenopathy. Heart--normal S1 and S2. No murmurs, rubs or gallops. Lungs--clear bilaterally, no respiratory distress, no accessory muscle use. Abdomen--normal bowel sounds and soft. Nontender. Nondistended, no hernias or masses, no organomegaly. Extremities--no cyanosis or clubbing. No edema. There are good distal pulses b/l. Dermatologic--normal skin turgor, normal color, no abnormal lymph nodes, no rash. Neurologic--cranial nerves II through XII grossly intact. Rheumatologic--normal range of motion. Psychiatric--normal affect. Discharge Exam General: No acute distress, nondiaphoretic, well-developed, well-nourished. Skin: The skin was without rashes, erythema, edema, or bruising. Cardiac: Tachycardic rate in the 110s. Regular rhythm without murmurs gallops or rubs. Pulm: Clear to auscultation bilaterally without wheezes, rales or rhonchi. No respiratory distress. 96% on room air. Abdominal: Soft, nontender, nondistended. Bowel sounds present. Neuro: A&O x3. No focal neurological deficits. Discharge Plan Discharge Items Patient Disposition: Home - Self-Care Reason For Visit: L URETERAL STONES, L HYDROURETERONEPHROSIS Discharge Diagnosis: Left sided ureteral stones with hydronephrosis Activity: Resume your previous activity Non-emergency contact: Primary Care Provider and Urologist Call non-emergency contact if: you have any medication questions and your symptoms worsen Follow-up/Referrals: Brennon Warren III, CRNP [Primary Care Provider] - 07/29/24 9:20 am Tae Hall DO [Physician] - (Follow up for definitive stone management) Diet: Regular Addtl Attending Provider Instructions: Gould, You were admitted to the hospital because of left-sided kidney stones with hydroureteronephrosis (swelling of your ureter/kidney). Your CT scan of you abdomen/pelvis showed a 3.4 mm distal ureteral stone, as well as a 3.4 mm ureteral stone more proximally. Your urinalysis was NOT suggestive of a urinary tract infection (UTI), so you do NOT need an antibiotic on discharge. You were evaluated by urology who discussed options for stone management. Since you have elected for outpatient stone treatment, you will follow-up with urology in their outpatient office. Your prescriptions have been sent to your [facility] pharmacy on [facility] Upon discharge from the hospital: * Take Flomax 0.4 mg daily. This is an alpha-abby relaxes the muscles in your bladder, making it easier to pee and potentially pass the kidney stone. Take this until your urology follow-up appointment. * Alternate between Tylenol and ibuprofen as your first-line pain control. These are msey-faf-uzsweev (OTC), so no prescription is required. * Take oxycodone 5 mg every 6 hours NEEDED for breakthrough pain. This is a narcotic pain medication. Do not drive or operate heavy machinery when taking this. * Take Zofran 4 mg tablet every 6 hours as needed for nausea/vomiting. * Use the urine strainer to strain your urine at home in case you pass the stone. Your nurse will provide you with a strainer prior to leaving the hospital. Your nurse will also give you a specimen cup. If you pass a stone, place it in the specimen cup and bring it to your urology appointment. * Stay hydrated and drink as much fluids as you can. This will help you pass the stone. * Follow-up with urology outpatient. Their office will call you tomorrow with your appointment date and time. * Follow-up with your PCP. Your appointment is scheduled for 07/29/24 at 9:20 AM. Please return to the hospital if you experience any of the following: Pain that is not controlled by the medicine given, repeated vomiting or unable to keep down fluids, fever of 100.4 F or higher, solid red or brown urine, urine with a lot of blood clots, foul-smelling or cloudy urine, unable to urinate for 8 hours with increasing bladder pressure, weakness, dizziness, passing out, chest pain, or difficulty breathing. It was a pleasure taking care of you while you were in the hospital, Shannan Steel PA-C Pending Studies at Discharge: No Stand-Alone Forms: My [facility], Smoking Cessation Medications and DC Order Prescriptions: New tamsulosin 0.4 mg Capsule 0.4 mg PO DAILY Qty: 14 0RF ondansetron HCl 4 mg tablet 4 mg PO Q6H PRN (Reason: nausea and vomiting) Qty: 30 0RF oxycodone 5 mg tablet 5 mg PO Q6H PRN (Reason: pain, severe) Qty: 14 0RF Continued bupropion HCl [Wellbutrin XL] 150 mg tablet extended release 24 hr 150 mg PO QAM Qty: 30 2RF (DME) Aluminum Crutches Misc See Rx Instructions .Route Qty: 1 0RF Rx Instructions: 1 pair forearm brace crutches. Length of need:99 lamotrigine 100 mg tablet 100 mg PO BID citalopram 10 mg tablet 5 mg PO Q OTHER DAY medroxyprogesterone 150 mg/mL syringe 150 mg IM UD Rx Instructions: Once every 10 weeks tamsulosin [Flomax] 0.4 mg capsule 0.4 mg PO DAILY Qty: 14 0RF Rx Instructions: Start Date 07/14/24 x14 day supply tramadol 50 mg tablet 50 mg PO Q8H PRN (Reason: pain) Qty: 14 0RF Discontinued cefdinir 300 mg capsule 300 mg PO BID 7 Days Qty: 14 0RF Rx Instructions: Start Date 07/14/24 x7 day supply Discharge Orders: Discharge Order (Routine); Ordered 07/20/24 Ordered By: Shannan Steel Admission Data Admit Date/Time: 07/20/24 01:09 Attending Provider: Graham Webb Admit Provider: Dejon Ramirez Primary Care Provider: Brennon Warren III Other Providers: Dejon Ramirez; Tae Hall Other Interventions: Discharge Summary Assessment (RN) Last Done: 07/20/24 18:04 Hospital Stay Data Consultations 07/20/24 00:05 Consult Urology Routine ED Decision to Admit Stat Diagnostic Imagining Performed Abdomen/Pelvis CT 07/19/24 22:06 Exam(s): CT ABDOMEN + PELVIS With Contrast IV Amt: 93 ml opti 320 EXAM: CT Abdomen and Pelvis With Intravenous Contrast CLINICAL HISTORY: left flank pain. TECHNIQUE: Axial computed tomography images of the abdomen and pelvis with intravenous contrast. CTDI is 7.41 mGy and DLP is 336.98 mGy-cm. Automated exposure control was utilized for the study. A dose lowering technique was utilized adhering to the principles of ALARA. CONTRAST: Patient received 93 ml opti 320 of IV contrast COMPARISON: CT abdomen and pelvis without contrast dated 07/13/2024 FINDINGS: Lung bases: Unremarkable. No mass. No consolidation. ABDOMEN: Liver: Unremarkable. No mass. Gallbladder and bile ducts: Unremarkable. No calcified stones. No ductal dilation. Pancreas: Unremarkable. No mass. No ductal dilation. Spleen: Unremarkable. No splenomegaly. Adrenals: Unremarkable. No mass. Kidneys and ureters: 3.4 mm distal left ureteral stone noted at the UVJ with mild to moderate left hydroureteronephrosis. There is an additional proximal left ureteral stone noted measuring 3.4 mm approximately 3 cm beyond the left UPJ (series 300; image 47). No abnormal enhancement to suggest pyelonephritis bilaterally. Evaluation for subtle nonobstructive nephrolithiasis is limited by contrast enhancement pattern. No right-sided hydronephrosis. Stomach and bowel: No evidence for bowel obstruction. No definite asymmetric bowel mucosal abnormality. Mild to moderate stool burden. PELVIS: Appendix: A normal caliber appendix is noted along the medial aspect of the cecum. Bladder: Unremarkable. No mass. Reproductive: Unremarkable as visualized. ABDOMEN and PELVIS: Intraperitoneal space: Unremarkable. No free air. No significant fluid collection. Bones/joints: No acute fracture. No dislocation. Soft tissues: Unremarkable. Vasculature: Unremarkable. No abdominal aortic aneurysm. Lymph nodes: Unremarkable. No enlarged lymph nodes. IMPRESSION: 3.4 mm distal left ureteral stone noted at the UVJ with mild to moderate left hydroureteronephrosis. There is an additional proximal left ureteral stone noted measuring 3.4 mm approximately 3 cm beyond the left UPJ (series 300; image 47). Electronically signed by: Wade Foster MD 07/19/24 23:58 PM Pending Results Patient Have Any Pending Studies at Discharge: No Discharge Instructions Given to Patient (Per Discharging Provider) Gould, You were admitted to the hospital because of left-sided kidney stones with hydroureteronephrosis (swelling of your ureter/kidney). Your CT scan of you abdomen/pelvis showed a 3.4 mm distal ureteral stone, as well as a 3.4 mm ureteral stone more proximally. Your urinalysis was NOT suggestive of a urinary tract infection (UTI), so you do NOT need an antibiotic on discharge. You were evaluated by urology who discussed options for stone management. Since you have elected for outpatient stone treatment, you will follow-up with urology in their outpatient office. Your prescriptions have been sent to your [facility] pharmacy on [facility] Upon discharge from the hospital: * Take Flomax 0.4 mg daily. This is an alpha-abby relaxes the muscles in your bladder, making it easier to pee and potentially pass the kidney stone. Take this until your urology follow-up appointment. * Alternate between Tylenol and ibuprofen as your first-line pain control. These are sexz-zjn-qrjrvld (OTC), so no prescription is required. * Take oxycodone 5 mg every 6 hours NEEDED for breakthrough pain. This is a narcotic pain medication. Do not drive or operate heavy machinery when taking this. * Take Zofran 4 mg tablet every 6 hours as needed for nausea/vomiting. * Use the urine strainer to strain your urine at home in case you pass the stone. Your nurse will provide you with a strainer prior to leaving the hospital. Your nurse will also give you a specimen cup. If you pass a stone, place it in the specimen cup and bring it to your urology appointment. * Stay hydrated and drink as much fluids as you can. This will help you pass the stone. * Follow-up with urology outpatient. Their office will call you tomorrow with your appointment date and time. * Follow-up with your PCP. Your appointment is scheduled for 07/29/24 at 9:20 AM. Please return to the hospital if you experience any of the following: Pain that is not controlled by the medicine given, repeated vomiting or unable to keep down fluids, fever of 100.4 F or higher, solid red or brown urine, urine with a lot of blood clots, foul-smelling or cloudy urine, unable to urinate for 8 hours with increasing bladder pressure, weakness, dizziness, passing out, chest pain, or difficulty breathing. It was a pleasure taking care of you while you were in the hospital, Shannan Steel PA-C Supervising Physician Co-Signing Physician Notes Attending Attestation & Discharge Note: Pt seen/examined, chart reviewed, care plan d/w JIMMIE Steel. I agree w/ the callaway components of her discharge documentation. 29yo male with prior h/o kidney stones (calcium based) who presented with ongoing L flank pain. On 07/[address] a/p showing a small distal left ureteral kidney stone. Since 07/13 has continued with flank pain and thus returned to the ED. Underwent repeat CT a/p on 07/19 showing - "3.4 mm distal left ureteral stone noted at the UVJ with mild to moderate left hydroureteronephrosis. There is an additional proximal left ureteral stone noted measuring 3.4 mm approximately 3 cm beyond the left UPJ." Admitted for IV fluids, pain control, and urology consultation. Urology advised conservative Rx and trial of spontaneous passage. Pain did improve with pain meds & supportive care. Was hydrating prior to d/c home. We offered to patient ongoing hospitalization for fluids, pain control, etc but patient opted to return home, stating that the hospital environment was causing considerable anxiety for him. Will d/c home with flomax, pain meds, etc. Encourage copious fluid intake at home. Urine strainer given to patient. Advised f/u with urology 1-2 weeks for recheck. As stones are small he has good chance of spontaneous passage of these stones. Discharge exam: gen - very thin, NAD, sitting at side of bed mouth - MMM heart - tachy, s1 s2, no murmur lungs - CTA b/l abd - b/l flank tenderness to palpation, BS+, no peritoneal signs, soft ext - no edema, pulses 2+ b/l Tachycardia - sinus. TSH wnl. Pt has tendencies towards tachycardia based on review of his record. Pain, anxiety, etc likely to blame. Graham Webb MD Total Time Total Time Spent Total Time Spent (In Minutes): Greater than 30 minutes spent completing this discharge process including direct patient care, medication reconciliation, documentation, review of labs and images, and coordination of care. Coding Level of Care Code 07664 INP/OBS DISCH >30 MIN Diagnoses Left ureteral calculus N20.1 Hydroureteronephrosis N13.30 Acute left flank pain R10.9 Sinus tachycardia R00.0 NYDIA (generalized anxiety disorder) F41.1
[2024-07-21] MEDS ORDERED: PANTOprazole 40 MG TAB PO SCH (09:00)
== END 2024-07-20 18:33 | disposition home or self-care (01) | DRG 694 ==
LOC: ED 20:53 → INTOOBSV 07-20 01:09 → EDINP 07-20 01:09 → SUATTDRO 07-20 01:09 → 4W 07-20 01:36